=== PATIENT | male | born 1970 | race Caucasian/White ===

== ENCOUNTER → 2016-05-04 | Outpatient (CLI) | payer BC ==
--- NOTE | 2016-05-04 12:40 | DIAGNOSTIC IMAGING REPORT ---
Limited abdominal ultrasound ABDOMEN FOR HERNIA CLINICAL HISTORY: UMBILICAL HERNIA hernia TECHNIQUE: Ultrasound periumbilical region COMPARISON STUDY: None FINDINGS: Slightly superior to a periumbilical scar is a nonreducible fat-containing hernia. Maximum diameter of the neck of the hernia is a 1.2 cm. This is nonreducible IMPRESSION: Nonreducible fat-containing 1.2 cm hernia . This is immediately superior to a periumbilical scar. Electronically signed by: Clif Clements M.D. 05/04/2016 12:37 PM
== END | disposition home or self-care (01) ==
LOC: C.ULTR 12:10
PROVIDERS: ATTEND Internal Medicine
DX: K42.9 Umbilical hernia without obstruction or gangrene (principal)